=== PATIENT | female | born 1975 | race Caucasian/White ===

== ENCOUNTER 2020-01-12 14:58 | Inpatient (IN) | payer BC ==
[~2020-01-12] VITALS: Ht 170.2 cm; Wt 126.6 kg
--- NOTE | 2020-01-12 15:04 | NUR ---
EKG DONE IN TRIAGE
--- NOTE | 2020-01-12 15:10 | NUR ---
Patient triaged and placed in waiting room. VSS and patient appears in no acute distress at this time. Accompanied by self, awaiting available bed, and MD notified of need for MSE.
[2020-01-12 15:12] VITALS: BP_SYST 186
--- NOTE | 2020-01-12 15:45 | NUR ---
Placed in room 08 . Placed on school lunch monitor, blood pressure machine and pulse oximeter. To gown for exam. Side rails up. Report given to Holland PRATHER.
--- NOTE | 2020-01-12 15:50 | NUR ---
PT CAME TO ER FOR SOB. CURRENTLY APPEARS CALM AND COMFORTABLE, MILD DISRESS, AWAITING MD.
--- NOTE | 2020-01-12 16:00 | NUR ---
ER at bedside examining patient.
[2020-01-12 16:41] LABS: BASOPHILS % (AUTO) 0.4 % (0.0-2.0); EOSINOPHILS # (AUTO) 0.2 K/uL (0.0-0.4); EOSINOPHILS % (AUTO) 2.2 % (0.0-4.0); HEMATOCRIT 44.1 % (36-48); HEMOGLOBIN 14.4 g/dL (12.0-16.0); LYMPHOCYTES # (AUTO) 2.4 K/uL (1.0-5.5); LYMPHOCYTES % (AUTO) 24.4 % (20.5-51.5); MEAN CORPUSCULAR HEMOGLOBIN 29 pg (27-31); MEAN CORPUSCULAR HGB CONC 33 % (32-36); MEAN CORPUSCULAR VOLUME 89 fL (79.0-98.0); MONOCYTES # (AUTO) 0.7 K/uL (0.0-1.0); MONOCYTES % (AUTO) 6.7 % (1.7-9.3); NEUTROPHILS # (AUTO) 6.5 K/uL (1.8-7.7); NEUTROPHILS % (AUTO) 66.3 % (40.0-70.0); PLATELET COUNT (AUTO) 312 K/uL (130-430); RED BLOOD CELL COUNT(AUTO) 4.98 MIL/uL (4.2-6.2); RED CELL DISTRIBUTION WIDTH 13.9 % (9.0-15.0); WHITE BLOOD COUNT (AUTO) 9.8 K/uL (4.8-10.8)
[2020-01-12 17:00] LABS: CALCIUM 9.3 mg/dL (8.4-11.0); CREATININE 0.64 mg/dL (0.55-1.30); POTASSIUM 3.6 mmol/L (3.5-5.1)
[2020-01-12 17:06] LABS: ALBUMIN 3.6 g/dL (3.4-4.8); TOTAL BILIRUBIN 0.4 mg/dL (0.0-1.0)
[2020-01-12 17:09] LABS: BILIRUBIN,URINE NEGATIVE (NEGATIVE); BLOOD, URINE NEGATIVE (NEGATIVE); CLARITY/URINE CLEAR (CLEAR); COLOR,URINE YELLOW (YELLOW); GLUCOSE,URINE NEGATIVE (NEGATIVE); KETONES,URINE NEGATIVE (NEGATIVE); LEUKOCYTE ESTERASE ,URINE NEGATIVE (NEGATIVE); NITRITE, URINE NEGATIVE (NEGATIVE); PH,URINE 7.5 (5.0-8.0); PROTEIN URINE NEGATIVE (NEGATIVE); UROBILINOGEN,URINE 0.2 (0.2-1.0)
--- NOTE | 2020-01-12 17:20 | NUR ---
PT RESTING IN [facility] COMFORTABLY NO COMPLAINTS AT THIS TIME
--- NOTE | 2020-01-12 18:43 | NUR ---
PT IN ROOM, NO DISTRESS, VSS
--- NOTE | 2020-01-12 19:13 | NUR ---
PT HAS THROMBOSIS IN BASILIC VEIN OF L ARM, PT STILL HAS REDNESS AND SWELLING OF ARM.
--- NOTE | 2020-01-12 19:40 | NUR ---
Pt off unit via wheelchair to radiology in stable condition.
[2020-01-12] MEDS ORDERED: CARV12.548 PO (19:48)
[2020-01-12] MEDS ORDERED: SERT50TA12 PO (19:48)
[2020-01-12] MEDS ORDERED: HYDR50TA3 PO (19:48)
[2020-01-12] MEDS ORDERED: GABA-533 PO (19:48)
[2020-01-12] MEDS ORDERED: IOHEXOL 100 ML IV ONE (19:50)
[2020-01-12] MEDS ORDERED: MORPHINE 4 MG/ML INJ. SYRINGE IVP ONE (20:30)
[2020-01-12] MEDS ORDERED: ENOXAPARIN SODIUM 120 MG/0.8 ML SYRINGE SUBCUT ONE (20:30)
[2020-01-12] MEDS ORDERED: DEXL30CA3 PO (20:33)
[2020-01-12] MEDS ORDERED: BUDE6.9H INH (20:33)
[2020-01-12] MEDS ORDERED: MONT10TA25 PO (20:33)
[2020-01-12] MEDS ORDERED: TIZA4TAB11 PO (20:33)
[2020-01-12] MEDS ORDERED: SULFAMETHOXAZOLE PO (20:33)
[2020-01-12] MEDS ORDERED: ROSU5TAB PO (20:33)
[2020-01-12] MEDS ORDERED: AMIT25TA9 PO (20:33)
[2020-01-12] MEDS ORDERED: HYDR-4274 PO (20:33)
--- NOTE | 2020-01-12 20:34 | NUR ---
Medication reconciliation completed with information provided by PATIENT'S LIST. Any prior medication reconciliation on file was reviewed and corrected.
--- NOTE | 2020-01-12 20:45 | NUR ---
Pt medicated per MD. Pt tolerated well. Will continue to monitor.
[2020-01-12] MEDS ORDERED: ONDANSETRON HCL 4 MG/2 ML VIAL IVP PRN (21:00)
[2020-01-12] MEDS ORDERED: hydrALAZINE HCL 20 MG/ML VIAL IVP ONE (21:30)
--- NOTE | 2020-01-12 21:35 | NUR ---
Patient will be admitted to care of DR. RANDHAWA. Admitted to TELEMETRY unit. Will go to room 117 B. Belongings list completed. Complete and up to date summary report printed. SBAR report to be given at bedside with opportunity for questions.
[2020-01-12] MEDS ORDERED: tiZANidine HCL 4 MG TABLET PO PRN (21:45)
[2020-01-12] MEDS ORDERED: amLODIPine BESYLATE 10 MG TABLET PO ONE (22:00)
[2020-01-12] MEDS ORDERED: IPRATROPIUM/ALBUTEROL SULFATE 3 ML AMPUL.NEB (DUONEB) INH PRN (22:00)
[2020-01-12] MEDS ORDERED: ACETAMINOPHEN 325 MG TABLET PO PRN (22:00)
[2020-01-12] MEDS ORDERED: cloNIDine HCL 0.1 MG TABLET PO PRN (22:00)
--- NOTE | 2020-01-12 22:08 | NUR ---
Transfer to Telemetry 109A via ACLS protocol. Licensed nurse present. IV present no signs or symptoms of infiltration.
--- NOTE | 2020-01-12 22:20 | NUR ---
ADMISSION NOTE Received patient from ER via gurney. Patient admitted with diagnosis of DVT LEFT ARM. Patient is awake, alert, oriented 4. Patient oriented to hospital room, call light, toileting, pain management and safety-teach back done. Patient informed that ROYER will be the nurse and that their room number is 109A. Personal belongings checked and Belongings List documented. Call light within reach.
[2020-01-12 22:25] VITALS: BP_SYST 160
--- NOTE | 2020-01-13 00:15 | NUR ---
ROUNDS Patient is resting in bed, awake, breathing evenly and nonlabored on room air. Assisted patient to and from the bathroom. No s/s of distress at this time, no other needs at this time. Fall/safety precautions.
[2020-01-13 01:15] VITALS: BP_SYST 160
[2020-01-13 01:31] VITALS: BP_SYST 158
[2020-01-13] MEDS: ONDANSETRON HCL 4 MG/2 ML VIAL IVP PRN ×2 (01:34→20:16)
[2020-01-13] MEDS: MORPHINE 2 MG/ML INJ. SYRINGE IVP PRN ×2 (01:36→20:17)
--- NOTE | 2020-01-13 01:40 | NUR ---
PAIN MED GIVEN Patient is resting in bed, awake, breathing evenly and nonlabored on room air. Patient complained of pain level of 10/10 on the left arm, denies any chest pain. Patient also requested medication for nausea with pain medication because she said the pain medication "makes her nauseous." Educated patient on medications, patient stated understanding. Administered medications, patient tolerated them well. No other needs at this time, fall/safety precautions.
[2020-01-13] MEDS: LEVOFLOXACIN 500 MG/D5W 100 ML IV SCH (02:35)
--- NOTE | 2020-01-13 02:35 | NUR ---
MEDICATIONS/ROUNDS Patient is resting in bed, awake, breathing evenly and nonlabored on room air. Patient complained of pain level of 6/10 on the left arm, denies any chest pain. Educated patient on medications, patient stated understanding. Administered medications, patient tolerated them well. No other needs at this time, fall/safety precautions. Will continue to monitor.
[2020-01-13] MEDS: HYDROcodone/ACETAMIN 10-325 MG TAB PO PRN ×2 (02:36→13:22)
[2020-01-13] MEDS ORDERED: LEVOFLOXACIN 500 MG/D5W 100 ML IV ONE (02:44)
--- NOTE | 2020-01-13 03:13 | NUR ---
CONSULTATION PAGED/CALLED Reason for Consultation: DVT LEFT ARM Person Who was Notified: MARGARITA Consulting Physician: DR. BURGER; DIRECTOR CLINICAL DATA - DR. MANTILLA Ordering Physician: DR. RANDHAWA
--- NOTE | 2020-01-13 04:30 | NUR ---
ROUNDS Patient is resting in bed, eyes closed, breathing evenly and nonlabored on room air. No s/s of distress at this time. No other needs at this time, fall/safety precautions. Will continue to monitor.
--- NOTE | 2020-01-13 06:59 | NUR ---
CLOSING NOTES Patient is resting in bed, eyes closed, breathing evenly and nonlabored on room air. No s/s of distress at this time. No other needs at this time, fall/safety precautions. Needs met throughout the shift. Will endorse care to morning shift RN.
[2020-01-13 07:26] LABS: BASOPHILS % (AUTO) 0.5 % (0.0-2.0); EOSINOPHILS # (AUTO) 0.1 K/uL (0.0-0.4); EOSINOPHILS % (AUTO) 1.6 % (0.0-4.0); HEMATOCRIT 39.3 % (36-48); HEMOGLOBIN 13.1 g/dL (12.0-16.0); LYMPHOCYTES # (AUTO) 2.4 K/uL (1.0-5.5); LYMPHOCYTES % (AUTO) 25.7 % (20.5-51.5); MEAN CORPUSCULAR HEMOGLOBIN 30 pg (27-31); MEAN CORPUSCULAR HGB CONC 33 % (32-36); MEAN CORPUSCULAR VOLUME 89 fL (79.0-98.0); MONOCYTES # (AUTO) 0.7 K/uL (0.0-1.0); MONOCYTES % (AUTO) 8.1 % (1.7-9.3); NEUTROPHILS # (AUTO) 5.9 K/uL (1.8-7.7); NEUTROPHILS % (AUTO) 64.1 % (40.0-70.0); PLATELET COUNT (AUTO) 263 K/uL (130-430); RED BLOOD CELL COUNT(AUTO) 4.44 MIL/uL (4.2-6.2); RED CELL DISTRIBUTION WIDTH 13.6 % (9.0-15.0); WHITE BLOOD COUNT (AUTO) 9.2 K/uL (4.8-10.8)
--- NOTE | 2020-01-13 07:41 | NUR ---
OPENING NOTES: RECEIVED BEDSIDE SBAR FROM NIGHT TIME RNROYER, PATIENT IN BED RESTING WITH EYES CLOSED, RESPIRATIONS EVEN, NON LABORED, BED IN LOW AND LOCKED POSITION, CALL LIGHT WITHIN REACH.
[2020-01-13 07:54] LABS: PROTHROMBIN TIME 9.7 SECS (9.5-12.5)
[2020-01-13 08:00] VITALS: BP_SYST 127
[2020-01-13 08:28] LABS: ALBUMIN 2.9 g/dL (3.4-4.8); CALCIUM 8.3 mg/dL (8.4-11.0); CREATININE 0.61 mg/dL (0.55-1.30); POTASSIUM 3.8 mmol/L (3.5-5.1); THYROID STIMULATING HORMONE 5.12 uIu/mL (0.36-3.74); TOTAL BILIRUBIN 0.4 mg/dL (0.0-1.0)
[2020-01-13] MEDS: GABAPENTIN 300 MG CAPSULE PO SCH ×2 (09:02→20:09)
[2020-01-13] MEDS: PANTOPRAZOLE SODIUM 40 MG TAB PO SCH (09:03)
[2020-01-13] MEDS: SERTRALINE HCL 50 MG TABLET PO SCH (09:03)
[2020-01-13] MEDS: HYDROCHLOROTHIAZIDE 25 MG TABLET (HCTZ) PO SCH (09:04)
[2020-01-13] MEDS: CARVEDILOL 12.5 MG TABLET (COREG) PO SCH ×2 (09:05→20:13)
--- NOTE | 2020-01-13 09:30 | NUR ---
NURSE NOTES: PATIENT SITTING IN BED, ALERT, RESPIRATIONS EVEN, NON LABORED, PATIENT STATES PAIN IS 3/10 AND THAT IT IS ACCEPTABLE, WILL CONTINUE TO MONITOR, BED IN LOW AND LOCKED POSITION, CALL LIGHT WITH IN REACH.
--- NOTE | 2020-01-13 09:44 | NUR ---
CONSULTATION PAGED/CALLED FOLLOW UP CONSULT Reason for Consultation:DVT Person Who was Notified: SPOKE WITH MUSA FROM DR. BURGER OFFICE . Consulting Physician: Front End Technician Specialty: HEMATOLOGY Ordering Physician:
--- NOTE | 2020-01-13 11:12 | NUR ---
NURSE NOTES: PATIENT SITTING IN BED, ALERT, FRIEND AT BEDSIDE, RESPIRATIONS EVEN, NON LABORED, BED IN LOW AND LOCKED POSITION, CALL LIGHT WITHIN REACH
[2020-01-13 12:39] VITALS: BP_SYST 147
--- NOTE | 2020-01-13 14:00 | NUR ---
nurse notes: patient in bed, resting, respirations, even, non labored, bed in low and locked position, call light within reach.
[2020-01-13 16:00] VITALS: BP_SYST 149
--- NOTE | 2020-01-13 16:14 | NUR ---
physician rounds: Dr. Ivy bedside examining patient, Dr. Ivy educated patient regarding DVT prevention and treatment. Patients questions answered by Dr. Ivy, patient verbalized understanding. Bed in low and locked position, call light within reach.
[2020-01-13] MEDS: MONTELUKAST 10 MG TABLET PO SCH (17:55)
--- NOTE | 2020-01-13 19:08 | NUR ---
CLOSING NOTE: BEDSIDE SBAR GIVEN TO NIGHT RNROYER, PATIENT IN BED, RESTING, BED IN LOW AND LOCKED POSITION, CALL LIGHT WITHIN REACH.
--- NOTE | 2020-01-13 19:45 | NUR ---
OPENING NOTES Received report from morning shift RN. Patient is resting in bed, awake, breathing evenly and nonlabored on room air, family at the bedside. Patient has an IV on the right AC saline lock, patent and benign, no s/s of infiltration or infection noted at this time. Vital signs stable. Educated patient on plan of care, fall/safety precautions, call light system patient, patient stated understanding with return demonstration. Bed is locked, armed, and at lowest position, will continue to monitor.
[2020-01-13 20:00] VITALS: BP_SYST 142
[2020-01-13] MEDS: APIXABAN 2.5 MG TABLET PO SCH (20:11)
[2020-01-13] MEDS: ATORVASTATIN 20 MG TABLET PO SCH (20:12)
[2020-01-13] MEDS: AMITRIPTYLINE HCL 25 MG TABLET (ELAVIL) PO SCH (20:43)
--- NOTE | 2020-01-13 20:43 | NUR ---
MEDICATIONS/ROUNDS Patient is resting in bed, awake, breathing evenly and nonlabored on room air, family at bedside. Patient complained of pain level of 8/10 on the left arm, denies any chest pain. Educated patient on medications, patient stated understanding. Administered pain medication and due medications, patient tolerated them well. No other needs at this time, fall/safety precautions. Will continue to monitor.
--- NOTE | 2020-01-13 22:30 | NUR ---
ROUNDS Patient is resting in bed, awake, breathing evenly and nonlabored on room air. No s/s of distress at this time. No other needs at this time, fall/safety precautions. Will continue to monitor.
[2020-01-14 00:15] VITALS: BP_SYST 150
[2020-01-14] MEDS: HYDROcodone/ACETAMIN 10-325 MG TAB PO PRN ×2 (00:50→18:13)
--- NOTE | 2020-01-14 00:50 | NUR ---
MEDICATIONS/ROUNDS Patient is resting in bed, awake, breathing evenly and nonlabored on room air. Vital signs stable. Patient complained of pain level of 6/10 on the left arm, denies any chest pain. Educated patient on pain medication, patient stated understanding. Administered pain medication, patient tolerated it well. Assisted patient to and from the bathroom. No other needs at this time, fall/safety precautions. Will continue to monitor.
[2020-01-14] MEDS: LEVOFLOXACIN 500 MG/D5W 100 ML IV SCH (01:53)
--- NOTE | 2020-01-14 02:07 | NUR ---
MEDICATIONS/ROUNDS Patient is resting in bed, awake, breathing evenly and nonlabored on room air. Educated patient on due medication, patient stated understanding. Administered medication, patient is tolerating it well. No s/s of distress at this time, no other needs at this time, fall/safety precautions. Will continue to monitor.
--- NOTE | 2020-01-14 06:30 | NUR ---
CLOSING NOTES Patient is resting in bed, awake, breathing evenly and nonlabored on room air. Assisted patient to and from the bathroom. No s/s of distress at this time. No other needs at this time, fall/safety precautions. Needs met throughout the shift. Will endorse care to morning shift RN.
--- NOTE | 2020-01-14 07:24 | NUR ---
OPENING NOTE Patient resting in the bed. No acute distress. AAO x 4. Denied of pain. Skin warm and dry to touch. SL intact to RAC, no redness, no swelling, patent. Discussed the safety issue, use call light when needs help, and plan of care, verbally understanding. Safety measure maintained. Call light within reached. Bed locked in low position, side rails up, bed alarm on. Will continue to monitor.
[2020-01-14 07:50] VITALS: BP_SYST 129
[2020-01-14] MEDS: GABAPENTIN 300 MG CAPSULE PO SCH ×2 (09:28→20:10)
[2020-01-14] MEDS: HYDROCHLOROTHIAZIDE 25 MG TABLET (HCTZ) PO SCH (09:28)
[2020-01-14] MEDS: SERTRALINE HCL 50 MG TABLET PO SCH (09:28)
[2020-01-14] MEDS: APIXABAN 2.5 MG TABLET PO SCH ×2 (09:29→20:14)
[2020-01-14] MEDS: CARVEDILOL 12.5 MG TABLET (COREG) PO SCH ×2 (09:30→20:10)
[2020-01-14] MEDS: PANTOPRAZOLE SODIUM 40 MG TAB PO SCH (09:30)
--- NOTE | 2020-01-14 09:30 | NUR ---
AM SCHEDULE MED GIVEN, TOLERATED WELL.
--- NOTE | 2020-01-14 11:20 | NUR ---
ROUND Patient ambulated in the room in steady gait with family. No acute distress. Safety measure maintained. Continue to monitor.
[2020-01-14 12:00] VITALS: BP_SYST 130
--- NOTE | 2020-01-14 12:59 | NUR ---
Dietitian Recommendations * Recommend continuing 2 gm Na, lactose-free diet LP, RD Please refer to Nutrition Assessment for details. Addendum: 01/14/20 at [address] Amended: Links added.
--- NOTE | 2020-01-14 13:00 | NUR ---
ROUND Patient resting in the bed. No acute distress. Family at bedside. Safety measure maintained. Call light within reached. Continue to monitor.
--- NOTE | 2020-01-14 14:58 | NUR ---
SEEN AND EXAMINED BY RAY LIEBERMAN.
[2020-01-14 16:08] VITALS: BP_SYST 134
--- NOTE | 2020-01-14 16:10 | NUR ---
AMBULATED IN THE HALLWAY Patient ambulatory with family in the hallway in steady gait.
[2020-01-14] MEDS: MONTELUKAST 10 MG TABLET PO SCH (18:12)
--- NOTE | 2020-01-14 18:13 | NUR ---
NORCO GIVEN Patient c/o left arm pain 5/10, [place] 10/325mg 1 tab given as ordered. No acute distress. Safety measure maintained. Call light within reached. Continue to monitor.
--- NOTE | 2020-01-14 18:53 | NUR ---
CLOSING NOTE Patient resting in the bed. No acute distress. PRN pain med given as needed. Skin warm and dry to touch. SL intact to RAC, no redness, no swelling, patent. Family at bedside. All needs met. Safety measure maintained. Call light within reached. Bed locked in low position, side rails up, bed alarm on. Will endorse to night nurse.
--- NOTE | 2020-01-14 19:15 | NUR ---
CHANGE OF SHIFT; pt. awake, with visitors at bedside. ice pack on left hand. no acute distress. pain med given prior to change of shift. will reassess later. call light at bedside.
[2020-01-14] MEDS: ATORVASTATIN 20 MG TABLET PO SCH (20:09)
[2020-01-14] MEDS: AMITRIPTYLINE HCL 25 MG TABLET (ELAVIL) PO SCH (20:10)
[2020-01-14 20:30] VITALS: BP_SYST 137
--- NOTE | 2020-01-14 20:30 | NUR ---
NOTES: VS checked. IV lock on rt. ac. moves all extremities well. on diagnostic cardiac sonographer and shows sinus rhythm. left hand swelling noted, kept elevated with pillow. instructed to call if help needed, call light at bedside.
--- NOTE | 2020-01-14 22:00 | NUR ---
NOTES: pt. remain awake with friends at bedside, ice pack on left hand, less swollen according to pt. but skin still reddish, keep elevated with pillow.
[2020-01-15] MEDS: HYDROcodone/ACETAMIN 10-325 MG TAB PO PRN (00:10)
--- NOTE | 2020-01-15 00:10 | NUR ---
NOTES: pt. medicated with [place] for c/o left hand pain. continuous ice pack on left hand. ambulated to restroom and voided.
[2020-01-15 00:11] VITALS: BP_SYST 130
[2020-01-15] MEDS: LEVOFLOXACIN 500 MG/D5W 100 ML IV SCH (01:51)
--- NOTE | 2020-01-15 02:46 | NUR ---
NOTES: pt. asleep, noted relief from pain, IV antibiotic still infusing. cardiac pattern unchanged.
--- NOTE | 2020-01-15 03:30 | NUR ---
NOTES: pt. checked ,sleeping on high fowlers position. IV lock, flushed.
--- NOTE | 2020-01-15 05:30 | NUR ---
NOTES: condition unchanged. sleeping, no distress.
--- NOTE | 2020-01-15 06:44 | NUR ---
CLOSING NOTES; pt. already awake, more ice pack on left hand. IV lock patent and intact. for further care and assistance. call light within reach. will endorse to day shift.
--- NOTE | 2020-01-15 07:20 | NUR ---
OPENING NOTE Patient resting in the bed. No acute distress. AAO x 4. Denied of pain. Skin warm and dry to touch. SL intact to RAC, no redness, no swelling, patent. Discussed the safety issue, use call light when needs help, and plan of care, verbally understanding. Safety measure maintained. Call light within reached. Bed locked in low position, side rails up. Refused bed alarm, risk and benefit explained, verbally understanding. Will continue to monitor.
[2020-01-15 07:45] VITALS: BP_SYST 123
[2020-01-15] MEDS: HYDROCHLOROTHIAZIDE 25 MG TABLET (HCTZ) PO SCH (09:24)
[2020-01-15] MEDS: CARVEDILOL 12.5 MG TABLET (COREG) PO SCH (09:24)
[2020-01-15] MEDS: GABAPENTIN 300 MG CAPSULE PO SCH (09:25)
[2020-01-15] MEDS: PANTOPRAZOLE SODIUM 40 MG TAB PO SCH (09:25)
[2020-01-15] MEDS: SERTRALINE HCL 50 MG TABLET PO SCH (09:25)
[2020-01-15] MEDS: APIXABAN 2.5 MG TABLET PO SCH (09:26)
--- NOTE | 2020-01-15 09:28 | NUR ---
AM SCHEDULE MED GIVEN, TOLERATED WELL.
--- NOTE | 2020-01-15 11:02 | NUR ---
ROUND Patient ambulated in the room and talked to the phone. No acute distress. Safety measure maintained. Continue to monitor.
[2020-01-15 12:00] VITALS: BP_SYST 123
--- NOTE | 2020-01-15 12:10 | NUR ---
AMBULATING IN THE HALLWAY Patient ambulating with family in the hallway in steady gait. No acute distress.
[2020-01-15 13:44] VITALS: BP_SYST 123
[2020-01-15] MEDS ORDERED: LEVO750T45 PO (13:53)
[2020-01-15] MEDS ORDERED: APIX5TAB PO (14:01)
--- NOTE | 2020-01-15 14:35 | NUR ---
D/C Patient Patient given medication reconciliation form and D/C instructions. Exit Care provided. Patient verbalized understanding. MD discussed with patient the results and treatment provided. Ambulatory with steady gait for discharge to home. Patient in stable condition, ID band removed. IV catheter removed, intact and dressing applied, no active bleeding. Rx of Eliquis and Levaquin given. Patient educated on pain management. All belongings sent with patient.
== END 2020-01-15 14:35 | disposition home or self-care (01) | DRG 300 ==
LOC: SED 14:58 → STU 20:57
PROVIDERS: ADMIT Internal Medicine; ATTEND Internal Medicine
DX: I82.612 Acute embolism and thrombosis of superficial veins of left upper extremity (principal); L03.114 Cellulitis of left upper limb; Z68.41 Body mass index [BMI] 40.0-44.9, adult; I82.A12 Acute embolism and thrombosis of left axillary vein; E78.5 Hyperlipidemia, unspecified; F32.9 Major depressive disorder, single episode, unspecified; G58.9 Mononeuropathy, unspecified; E66.01 Morbid (severe) obesity due to excess calories; G89.4 Chronic pain syndrome; I10 Essential (primary) hypertension; J45.909 Unspecified asthma, uncomplicated; K21.9 Gastro-esophageal reflux disease without esophagitis; Z88.8 Allergy status to other drugs, medicaments and biological substances; Z79.899 Other long term (current) drug therapy
CPT/HCPCS: 36415; 71250-TC; 71275; 80053; 81003; 81025; 82550-TC; 84439; 84443-TC; 84484; 85025; 85379; 85610-TC; 85730-TC; 87040-TC; 93005; 93971; 96374; 96375; 99285; G0378; J0360; J1650; J1956; J2270; J2405; Q9967